=== PATIENT | male | born 1970 | race Caucasian/White ===

== ENCOUNTER 2017-10-08 13:15 | Emergency (ER) | payer MEDICAID, OTHER | END 2017-10-08 15:31 | disposition home or self-care (01) | LOC: FTE 13:15 | DX: D49.89 Neoplasm of unspecified behavior of other specified sites (principal) | CPT/HCPCS: 70360; 71045; 76536; 99284-25 ==

== ENCOUNTER 2018-12-18 18:37 | Emergency (ER) | payer MEDICAID ==
[2018-12-18] MEDS: FLUORESCEIN STRIP LEFT EYE (22:09)
[2018-12-18] MEDS: TETRACAINE 0.5% 4 ML OPH LEFT EYE (22:09)
== END 2018-12-18 22:23 | disposition home or self-care (01) ==
LOC: FTE 18:37
DX: S05.02XA Injury of conjunctiva and corneal abrasion without foreign body, left eye, initial encounter (principal); H00.024 Hordeolum internum left upper eyelid; X58.XXXA Exposure to other specified factors, initial encounter; Y92.9 Unspecified place or not applicable
CPT/HCPCS: 99283; Z7502